=== PATIENT | male | born 1965 | race Caucasian/White ===

== ENCOUNTER 2017-07-19 07:59 | Inpatient (IN) | payer OTHER ==
[~2017-07-19] VITALS: Ht 180.3 cm; Wt 79.4 kg
[2017-07-19] MEDS ORDERED: MAG HYDROX/AL HYDROX/SIMETH 30 ML LIQUID UDC PO PRN (15:15)
[2017-07-19] MEDS ORDERED: IBUPROFEN 400 MG TABLET PO PRN (15:15)
[2017-07-19] MEDS ORDERED: LORAZEPAM 1 MG TABLET PO PRN ×2 (15:15)
[2017-07-19] MEDS ORDERED: CLONIDINE HCL 0.1 MG TABLET PO PRN (15:15)
[2017-07-19] MEDS ORDERED: ACETAMINOPHEN 325 MG TABLET PO PRN (15:15)
[2017-07-19] MEDS ORDERED: ONDANSETRON ODT 4 MG TAB.RAPDIS SL PRN (15:15)
[2017-07-19] MEDS ORDERED: MAGNESIUM HYDROXIDE 30 ML LIQUID UDC PO PRN (15:15)
[2017-07-19] MEDS ORDERED: ONDANSETRON 4 MG/2 ML VIAL IM PRN (15:15)
[2017-07-19] MEDS ORDERED: DICYCLOMINE HCL 20 MG TABLET PO PRN (15:15)
[2017-07-19] MEDS ORDERED: MIRALAX 17 GM POWD.PACK PO PRN (15:15)
[2017-07-19] MEDS ORDERED: LORAZEPAM 2 MG/1 ML VIAL IM PRN (15:15)
[2017-07-19] MEDS ORDERED: LOPERAMIDE HCL 2 MG CAPSULE PO PRN ×2 (15:15)
--- NOTE | 2017-07-19 15:35 | NUR ---
Intake Assessment; Patient is a 51 year old male presented to [facility] to detoxify from Benzodiazepine. Patient is AOX4, appears intoxicated due to ingestion of Xanax prior to admission. Patient's admitting vital signs are as follows; BP 115/69, HR 87, Temperature 98.0, respirations 18, Spo2 95%, denies pain. Patient denies any allergies and denies history of seizures. Educated patient regarding the importance of compliance to treatment and medication regime, verbalized understanding. Will continue with further assessment when patient is up on the unit.
[2017-07-19 16:03] LABS: BASOPHILS % (AUTO) 0.8 % (0.0-2.0); EOSINOPHILS # (AUTO) 0.1 K/uL (0.0-0.7); EOSINOPHILS % (AUTO) 2.9 % (0.0-7.0); HEMATOCRIT 45.6 % (36.7-47.1); HEMOGLOBIN 15.7 g/dL (12.5-16.3); LYMPHOCYTES # (AUTO) 2.1 K/uL (20.0-40.0); LYMPHOCYTES % (AUTO) 42.4 % (20.5-51.5); MEAN CORPUSCULAR HEMOGLOBIN 29.1 uug (23.8-33.4); MEAN CORPUSCULAR HGB CONC 34 g/dL (32.5-36.3); MEAN CORPUSCULAR VOLUME 84.5 fL (73.0-96.2); MONOCYTES # (AUTO) 0.7 K/uL (2.0-10.0); MONOCYTES % (AUTO) 13.6 % (0.0-11.0); NEUTROPHILS % (AUTO) 40.3 % (38.5-71.5); PLATELET COUNT (AUTO) 203 K/uL (152-348); RED BLOOD CELL COUNT(AUTO) 5.39 MIL/uL (4.06-5.63); WHITE BLOOD COUNT (AUTO) 4.9 K/uL (3.6-10.2)
[2017-07-19 16:13] LABS: ETHANOL < 3 MG/DL (0-0)
[2017-07-19 16:14] LABS: *AMPHETAMINE, URINE NEGATIVE (NEGATIVE); *BARBITURATE, URINE NEGATIVE (NEGATIVE); *CANNABINOID, URINE NEGATIVE (NEGATIVE); *COCCAINE, URINE NEGATIVE (NEGATIVE); *OPIATE, URINE NEGATIVE (NEGATIVE); *PHENCYCLIDINE SCREEN,URINE NEGATIVE (NEGATIVE)
[2017-07-19 16:19] LABS: ALANINE AMINOTRANSFERASE 62 U/L (16-63); ALKALINE PHOSPHATASE 171 U/L (50-136); ASPARTATE AMINOTRANSFERASE 36 U/L (15-37); BILIRUBIN,TOTAL 0.4 mg/dL (0.2-1.0); CARBON DIOXIDE 30 mmol/L (21-32); CHLORIDE 106 mmol/L (98-107); CREATININE 1.1 mg/dL (0.6-1.3); GLUCOSE 88 mg/dL (74-106); MAGNESIUM 2.1 mg/dL (1.8-2.4); POTASSIUM 4.2 mmol/L (3.5-5.1); TOTAL PROTEIN, SERUM 7.4 g/dL (6.4-8.2); UREA NITROGEN, BLOOD 18 mg/dL (7-18)
[2017-07-19] MEDS ORDERED: ACYC400T PO (16:51)
[2017-07-19] MEDS ORDERED: HYDR25SU11 RC (16:51)
[2017-07-19] MEDS ORDERED: CYCL5TAB PO (16:51)
[2017-07-19] MEDS ORDERED: ECON15CR2 TP (16:51)
[2017-07-19] MEDS ORDERED: HYDR453.3 TP (16:51)
[2017-07-19] MEDS ORDERED: FLUO40CA49 PO (16:51)
[2017-07-19] MEDS ORDERED: ABAC1TAB15 PO (16:51)
[2017-07-19] MEDS ORDERED: ALPR0.5T8 PO (16:51)
[2017-07-19] MEDS ORDERED: KETO5DRO72 EACHEYE (16:51)
[2017-07-19 17:00] VITALS: BP 110/86
--- NOTE | 2017-07-19 17:27 | NUR ---
Admission note; Patient is a 51 year old male presented to [facility] to detoxify from Benzodiazepine. Patient is AOX4, appears intoxicated due to ingestion of Xanax prior to admission. Patient's admitting vital signs are as follows; BP 115/69, HR 87, Temperature 98.0, respirations 18, Spo2 95%, denies pain. Patient denies any allergies and denies history of seizures. Educated patient regarding the importance of compliance to treatment and medication regime, verbalized understanding. Discussed substance use history. Patient started taking prescribed Xanax when he was 27 years old for Anxiety disorder. Patient was sober for 11 years until his recent relapse on April 2017. At this rate patient is taking 1-2 mg of Xanax/day to manage his anxiety attacks, last taken today prior to admission. 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 Patient started using Meth when he was 17 years and was using it on intermittent basis. Patient was also sober from Meth for 11 years but recently relapsed on April 2017, last used on June 10, 2017. Medical and psychiatric history discussed. Patient reported being diagnosed with HIV in 2000 and currently taking HIV medications. Patient was also diagnosed with Herpes Simplex type 1 in 2000. Patient was recently diagnosed with multiple psychiatric disorders including, Bipolar disorder, borderline disorder, Generalized anxiety disorder, ADHD, PTSD, OCD. Home medications reconciled. Patient reported that his recent relapse is due to job loss which led to stress and multiple anxiety and anger attacks. Patient reported that he wants to stop using mentioned substances so he can continue with sobriety. Patient is willing to continue treatment after discharge at [facility] for a 60 day program. Patient was seen and evaluated by MD. Admitted patient to room 310. Skin check done, small intact dry abrasion noted on patient's right thumb due to skin picking. Oriented patient to unit. Patient primary care physician is Dr. Matthew Long. All safety measures secured. Will continue to monitor patient.
--- NOTE | 2017-07-19 18:44 | NUR ---
End of shift note; Patient is AOX4, patient is a newly admitted client here to detoxify from Benzodiazepine,. Patient is currently on PRN medications only, to be evaluated by MD tomorrow for possible taper order. All safety measures secured. Met all needs.
--- NOTE | 2017-07-19 19:10 | NUR ---
Start of Shift Patient Received. Patient is in his room, awake, alert and verbally responsive. He is noted sitting in bed watching TV and noted with worried affect. Patient is currently placed on PRN medications for increased signs and symptoms of withdrawal. No PRN medications administered. Last noted CIWA 3. All needs attended to promptly. Will continue plan of care as ordered.
[2017-07-19 20:30] VITALS: BP 109/66
[2017-07-19] MEDS ORDERED: LORAZEPAM 1 MG TABLET PO SCH (21:00)
[2017-07-19] MEDS: GABAPENTIN 300 MG CAPSULE PO SCH (21:38)
[2017-07-20 00:17] VITALS: BP 101/66
[2017-07-20 04:29] VITALS: BP 106/71
--- NOTE | 2017-07-20 07:05 | NUR ---
End of Shift Patient is noted in bed sleeping. Breathing even and non labored. Patient is currently placed on PRN medications for increased signs and symptoms of withdrawal. No PRN medications administered. Last noted CIWA 10. He slept a total of 9 hours. All needs attended to promptly. Will endorse to continue plan of care as ordered.
[2017-07-20 08:00] VITALS: BP 105/77
--- NOTE | 2017-07-20 08:00 | NUR ---
Received endorsement from manager shift nurse. Client is resting in room. Client is A/O to person, place, time, and situation. Client denies any S/I or H/I. Client was placed on PRN medications for continued s/s of withdrawal. No PRN medications were given during previous shift. Client slept for 9 hrs. during the night. Last CIWA 10 @0400. Side rails padded and raised. Call light within reach.
[2017-07-20] MEDS ORDERED: TUBERCULIN,PURIF.PROT.DERIV. 5 TU/0.1 ML TEST ID ONE (09:00)
[2017-07-20] MEDS: TRIUMEQ PO SCH (09:09)
[2017-07-20] MEDS: GABAPENTIN 300 MG CAPSULE PO SCH ×2 (09:09→20:35)
--- NOTE | 2017-07-20 09:16 | NUR ---
PPD Test administered to left forearm.
[2017-07-20] MEDS: FLUOXETINE HCL 20 MG CAPSULE PO SCH (12:12)
[2017-07-20] MEDS: LORAZEPAM 1 MG TABLET PO SCH ×3 (12:12→20:35)
[2017-07-20 12:22] VITALS: BP 103/70
[2017-07-20 16:00] VITALS: BP 108/74
--- NOTE | 2017-07-20 18:42 | NUR ---
START OF SHIFT NOTE: Patient is a 51 year old male, continues modified 4 Day Ativan for Benzodiazepines/Xanax and Methamphetamine withdrawal. Patient is alert and oriented x4. The most recent CIWA=9 @1605. Patient presented anxious, agitated, c/o nervousness, pins and needles sensations, mild headache, tremors, stomach cramps, sweating, and restlessness. No PRN Medications administrated during day, per day shift nurse report. All needs met. Safety measures in place by hospital policy: Call light within reach, bed in the lowest position locked, padded rails up x2. Endorsement received from day shift nurse. Will continue to monitor closely.
--- NOTE | 2017-07-20 18:42 | NUR ---
END OF SHIFT Endorsed client to incoming nurse. Client remains in his room. Client is a/o to person, place, time, and situation. Client continues to have an anxious mood , is depressed, and has a flat affect. Client denies any s/s of pain. Client is on a modified 4 day Ativan taper for withdrawals from benzodiazepines. Clients v/s were monitored throughout the day. Client did not attend group therapy. Client did consume 100% of all meals. No PRN medications were given. Last CIWA 9 @1600. Client has call light within reach and will continue to be monitored.
[2017-07-20 20:00] VITALS: BP 103/75
[2017-07-20] MEDS: diphenhydrAMINE 50 MG CAPSULE PO PRN (20:35)
--- NOTE | 2017-07-20 20:35 | NUR ---
PRN BENADRYL 50 MG 1 CAPSULE PO ADMINISTRATION. Patient c/o insomnia and asked aid. PRN Benadryl 50 mg 1 capsule PO administrated as ordered with full glass of water. Patient tolerated well. All needs met. Safety measures in the place: Call light within reach, bed in the lowest position locked, padded rails up x2. Will to continue to monitor closely.
--- NOTE | 2017-07-20 21:35 | NUR ---
RE-ASSESSMENT Patient is sleeping. RR:16. Respirations are unlabored and even. PRN Benadryl 50 mg PO administrated for insomnia @2025 was effective. All needs met. Safety measures in the place: Call light within reach, bed in the lowest position locked, padded rails up x2. Will to continue to monitor closely.
[2017-07-21] VITALS: BP 100/73
[2017-07-21 04:00] VITALS: BP 95/65
[2017-07-21 05:11] LABS: *BASOS 0 % (Not Estab.); *EOS 3 % (Not Estab.); *EOS ABSOLUTE 0.2 x10E3/uL (0.0-0.4); *HCT 44.1 % (37.5-51.0); *HGB 15.3 g/dL (13.0-17.7); *IMMATURE GRANULOCYTES 0 % (Not Estab.); *LYMPHOCYTES 39 % (Not Estab.); *LYMPHOCYTES ABSOLUTE 1.9 x10E3/uL (0.7-3.1); *MCH 28.9 pg (26.6-33.0); *MCHC 34.7 g/dL (31.5-35.7); *MCV 83 fL (79-97); *MONOCYTES 15 % (Not Estab.); *MONOCYTES ABSOLUTE 0.7 x10E3/uL (0.1-0.9); *NEUTROPHILS 43 % (Not Estab.); *NEUTROPHILS ABSOLUTE 2.1 x10E3/uL (1.4-7.0); *PLT 194 x10E3/uL (150-379); *RDW 13.6 % (12.3-15.4); *WBC 4.9 x10E3/uL (3.4-10.8)
--- NOTE | 2017-07-21 06:55 | NUR ---
END OF SHIFT NOTE: 51 year old male admitted for Benzodiazepines (Xanax) and Methamphetamine withdrawal, continues modified 4 day Ativan taper. Patient is alert and oriented x4. He is ambulatory with steady gate. The patient appears sad with flat affect, and with poor eye contact. The patient encouraged to express her feelings. Education provided to use of Relaxation Techniques: Deep breathing exercises, guided imagery, and visualization. Patient noted to be unshaven, unkempt, and uncombed. Educated in safety and hygiene care. Encouraged to independently perform hygiene care. Initial CIWA= 10 @ 2000, CIWA=8 @0000. The most recent CIWA=8 @0400. The patient presented with anxiety, agitation, nervousness, tremors, sweating, restless legs, and fatigue. Skin is intact, warm and dry to touch. Encouraged to increase oral fluids as tolerated. PRN Benadryl 50 mg PO administrated for insomnia @2034 was effective. Patient remains compliant with treatment, medications, and diet regime. Calm and safety environment with minimized noises was provided. Patient slept 8 hours, intake1,000 ml, voided x1. Encouraged to fluid intake as tolerated. Encouraged to attend group activities. All needs met. Safety measures in the place: Call light within reach, bed locked in the lowest position, padded rails up x2. Patient endorsed to day shift nurse.
--- NOTE | 2017-07-21 07:30 | NUR ---
START OF SHIFT Rcvd endorse from ongoing nurse, client is in room, a/o X 4, Client presents with anxious mood, agitated, flat affect, moist skin, tremors, and difficulty concentrating. Client reports nausea, abdominal cramps, cold/chills, restless legs, decreased appetite, inability to sleep, and fatigue. Encourage client to increase PO fluid to facilitate detox. Encourage client to attend group therapy to learn skills to maintain sober. Client is on 4 day Ativan taper (day 2). Last CIWA 8 @ 1999. PRN Benadryl 50mg PO administered for inability to sleep, client slept 8 hrs. Seizure precautions. Call light within reach.
[2017-07-21 08:00] VITALS: BP 115/75
[2017-07-21] MEDS: TRIUMEQ PO SCH (08:13)
[2017-07-21] MEDS: LORAZEPAM 1 MG TABLET PO SCH ×2 (08:13→14:05)
[2017-07-21] MEDS: FLUOXETINE HCL 20 MG CAPSULE PO SCH (08:13)
[2017-07-21] MEDS: GABAPENTIN 300 MG CAPSULE PO SCH ×2 (08:13→20:17)
[2017-07-21 11:07] LABS: *HELPER T-LYMPH MARKR(CD4)ABSO 809 /uL (359-1519); *HELPER T-LYNPH MARKER CD4)% 42.6 % (30.8-58.5); HEPATITIS B SURFACE AG Negative (Negative)
[2017-07-21 12:35] VITALS: BP 116/75
[2017-07-21 16:00] VITALS: BP 105/71
--- NOTE | 2017-07-21 19:37 | NUR ---
END OF SHIFT Endorse client to incoming nurse, client is in room, he is a/o x 4. client continues to present depressed, anxious mood, flat affect, fine tremors, clammy skin, decreased appetite, restless legs, and fatigue. Client is compliant with group therapy. Adequate PO fluid intake 2750mL, void x 5, stool x1. Consumes 50% of meals. Last CIWA 13 @ 1600. Call light within reach.
--- NOTE | 2017-07-21 19:40 | NUR ---
START OF SHIFT Patient is a 51-year-old male admitted on 07/19/17 for benzodiazepine withdrawal. Patient is currently on a modified 4-day Ativan taper, today being day 2, tolerating well. Patients last CIWA was 13 per day shift nurse. Patient received no PRN medications per day shift. Upon assessment, patient is quiet and does not make eye contact. Patient is alert and oriented x4. Patient reports anxiety and is cooperative but withdrawn. Patient is on fall and seizure precautions, with no history of seizure. Safety measures in place, side rails up x2, bed locked in low position, call light within reach. Will continue to monitor.
[2017-07-21 20:00] VITALS: BP 93/60
[2017-07-21] MEDS ORDERED: LORAZEPAM 1 MG TABLET PO SCH (21:00)
[2017-07-22] VITALS: BP 96/68
--- NOTE | 2017-07-22 | NUR ---
CIWA DEFERRED CIWA deferred due to patient sleeping; to be assessed and scored while patient is awake. Patient's respirations are even and unlabored, 16/min. Safety measures in place, bed locked in low position, side rails up x2, call light within reach. Will continue to monitor.
[2017-07-22 04:00] VITALS: BP 104/72
--- NOTE | 2017-07-22 04:00 | NUR ---
CIWA DEFERRED CIWA deferred at this time due to patient sleeping; to be assessed and scored while patient is awake. Patient's respirations are even and unlabored, 16/min. Safety measures in place, bed locked in low position, side rails up x2, call light within reach. Will continue to monitor.
--- NOTE | 2017-07-22 07:15 | NUR ---
END OF SHIFT Patient is a 51-year-old male admitted on 07/19/17 for benzodiazepine withdrawal. Patient is currently on a modified 4-day Ativan taper, today will be day 3, tolerating well. Patients last CIWA was 11. Patient received no PRN medications during shift foreman. Patient slept for 9 hours, total intake 1,422mL, void x3, stool x1. Patient is on fall and seizure precautions, with no history of seizure. Safety measures in place, side rails up x2, bed locked in low position, call light within reach. Will endorse to day shift.
--- NOTE | 2017-07-22 07:36 | NUR ---
START OF SHIFT Pt is a 51 yr old male, AA&Ox4. Pt was admitted on 07/19/17 for Benzo w/d and is on 4 day Ativan taper as ordered. Received report from branch specialist nurse. No PRN's were given during the night. Last CIWA score was 11. Pt slept for 9 hrs. Pt is currently in bed resting with respirations even and unlabored. Skin is intact, warm and moist to touch. Pt is on fall and seizure precautions. Call light is within reach. will continue to monitor.
[2017-07-22 08:00] VITALS: BP 119/77
[2017-07-22] MEDS: FLUOXETINE HCL 20 MG CAPSULE PO SCH (08:52)
[2017-07-22] MEDS: LORAZEPAM 1 MG TABLET PO SCH ×2 (08:52→21:14)
[2017-07-22] MEDS: GABAPENTIN 300 MG CAPSULE PO SCH ×3 (08:52→21:14)
[2017-07-22] MEDS: TRIUMEQ PO SCH (08:52)
--- NOTE | 2017-07-22 08:54 | NUR ---
PRN GIVEN Pt c/o headache 09/10. Facial grimacing is observed. Pt is also noted fidgety and tense. Motrin 400mg PO PRN was given as ordered. Encouraged increase fluid intake for hydration. Will continue to monitor.
--- NOTE | 2017-07-22 09:54 | NUR ---
PRN RE-ASSESSMENT Motrin PRN was effective. Pt denies any headache at this time. Encouraged increase fluid intake. Will continue to monitor.
[2017-07-22 12:00] VITALS: BP 102/74
[2017-07-22] MEDS ORDERED: IBUP-1953 PO (13:10)
[2017-07-22] MEDS ORDERED: DIPH50CA37 PO (13:10)
[2017-07-22] MEDS ORDERED: GABA-534 PO (13:10)
[2017-07-22] MEDS ORDERED: CLON0.1T14 PO (13:10)
[2017-07-22 16:00] VITALS: BP 100/73
--- NOTE | 2017-07-22 19:02 | NUR ---
END OF SHIFT Pt is a 51 yr old male, AA&Ox4. Pt was admitted on 07/19/17 for Benzo w/d and is on 4 day Ativan taper as ordered. Pt has been cooperative with medication regimen and plan of care. Pt attended group therapy. Pt c/o anxiety and headache in the morning before 0900 medications. Motrin 400mg PO PRN was given for headache. Medication was effective. Pt was noted with facial redness and fine tremors on BUE. Pt is also noted with flat affective. Skin is intact, warm and moist to touch. Pt was encouraged increase fluid intake for hydration. Last CIWA score was 8 at 1600. Pt was able to consume 75-100% of meals. Pt is on fall and seizure precautions. Call light is within reach.
--- NOTE | 2017-07-22 19:30 | NUR ---
START OF SHIFT NOTE : Pt is a 51 yr old male, AA&Ox4. Pt was admitted on 07/19/17 for Benzo w/d and is on 4 day Ativan taper as ordered . Last CIWA score was 8 at 1600. PRN Motrin 400mg PO was given during a day shift. Medication was effective. Upon assessment, patient is resting in the bed. Patient is alert and oriented x3, withdrawn when alert, complained of increased level of anxiety, difficulty falling and staying asleep, tremor bilaterally . Encouraged healthy diet while in detox. Encouraged patient to participate in group therapies and verbalize feelings.Encouraged to independently perform hygiene care.Instructed patient to maintain adequate fluid and nutritional intake. Safety measures in place, side rails up x2, bed locked in low position, call light within reach. Will continue to monitor and observe closely.
[2017-07-22 20:00] VITALS: BP 112/80
--- NOTE | 2017-07-22 21:00 | NUR ---
PRN BENADRYL Pt. complains of difficulty falling asleep, insomnia. PRN BENADRYL given as ordered. Safety measures in place : bed on lowest position with side rails x2 up for safety, call light within reach. Will continue to monitor closely and offer help.
[2017-07-22] MEDS: diphenhydrAMINE 50 MG CAPSULE PO PRN (21:14)
--- NOTE | 2017-07-22 21:58 | NUR ---
RE-ASSESSMENT DARIN Pt. is sleeping, RR=16, unlabored and even . Safety measures in place : bed on lowest position with side rails x2 up for safety, call light within reach. Will continue to monitor closely and offer help.
--- NOTE | 2017-07-23 06:39 | NUR ---
END OF SHIFT NOTE : Pt is a 51 yr old male, AA&Ox4. Pt was admitted on 07/19/17 for Benzo w/d and is on 4 day Ativan taper as ordered . PRN BENADRYL given during a power and recovery shift engineer. Pt. spent time in his room only till late of the evening, was friendly and cooperative. Encouraged patient to participate in group therapies and verbalize feelings. CIWA taken when pt. was awake, last CIWA=8 at 04:00 . Intake= 1,653ml, voided x3, slept=8 hours. Safety measures in place : bed on lowest position with side rails x2 up for safety, all light within reach. Will continue to monitor closely and offer help.
--- NOTE | 2017-07-23 07:30 | NUR ---
START OF SHIFT Pt is a 51 yr old male, AA&Ox4. Pt was admitted on 07/19/17 for Benzo w/d and is on 4 day Ativan taper as ordered. Received report from retail shift leader nurse. Pt received Benadryl PRN for sleep. Medication was effective. Pt slept for 8 hrs. Last CIWA score was 8 during the night. Pt states of sleeping well through the night. Pt c/o anxiety but is able to cope with anxiety level. Skin is intact, warm and moist to touch. Pt was encourage to attend group during the day. Pt is on fall and seizure precautions. Call light is within reach. Will continue to monitor.
[2017-07-23 08:09] VITALS: BP 108/70
[2017-07-23] MEDS: FLUOXETINE HCL 20 MG CAPSULE PO SCH (08:46)
[2017-07-23] MEDS: GABAPENTIN 300 MG CAPSULE PO SCH ×3 (08:46→21:16)
[2017-07-23] MEDS: TRIUMEQ PO SCH (08:46)
[2017-07-23] MEDS ORDERED: LORAZEPAM 1 MG TABLET PO SCH (09:00)
[2017-07-23 12:00] VITALS: BP 108/75
[2017-07-23 16:00] VITALS: BP 108/72
--- NOTE | 2017-07-23 18:50 | NUR ---
END OF SHIFT Pt is a 51 yr old male, AA&Ox4. Pt was admitted on 07/19/17 for Benzo w/d and has completed a 4 day Ativan taper as ordered. Pt has been cooperative with medication regimen and attended group therapy. Pt has been noted to remain in his room throughout the day. Pt c/o anxiety but is able to cope with anxiety level. Skin is intact, warm and moist to touch. Pt is noted with flat affect. Pt was encouraged increase fluid intake for hydration. Last CIWA score was 8 at 1600. Pt was able to consume 75-100% of meals. Pt is to be discharged tomorrow on 07/24/17. Pt is on fall and seizure precautions. Call light is within reach.
--- NOTE | 2017-07-23 19:30 | NUR ---
START OF SHIFT NOTE : Pt is a 51 yr old male, AA&Ox4. Pt was admitted on 07/19/17 for Benzo w/d and is on 4 day Ativan taper as ordered . Last CIWA score was 8 at 1600. No PRN was giving during a day shift.. Upon assessment, patient is resting in the bed. Patient is alert and oriented x3, withdrawn when alert, complained of insomnia, increased level of anxiety, anhedonia. Educated patient regarding the importance of compliance to treatment and medication regime, patient verbalized understanding. Encouraged patient to participate in group therapies and verbalize feelings. Safety measures in place, side rails up x2, bed locked in low position, call light within reach. Will continue to monitor and observe closely.
[2017-07-23 20:00] VITALS: BP 117/78
[2017-07-23] MEDS: diphenhydrAMINE 50 MG CAPSULE PO PRN (21:16)
--- NOTE | 2017-07-23 22:00 | NUR ---
RE-ASSESSMENT DRAIN Pt. is sleeping, RR=16, unlabored and even . Safety measures in place : bed on lowest position with side rails x2 up for safety, call light within reach. Will continue to monitor closely and offer help.
--- NOTE | 2017-07-24 06:33 | NUR ---
END OF SHIFT NOTE : Pt is a 51 yr old male, AA&Ox4. Pt was admitted on 07/19/17 for Benzo w/d and is on 4 day Ativan taper as ordered . PRN BENADRYL given during a cargo operations agent. Pt. spent time in his room only till late of the evening. CIWA taken when pt. was awake, last CIWA=8 at 04:00 . Intake= 1,500ml, voided x3, slept=8 hours. Pt. will be D/C today in A.M. Safety measures in place : bed on lowest position with side rails x2 up for safety, all light within reach. Will continue to monitor closely and offer help.
--- NOTE | 2017-07-24 07:30 | NUR ---
START OF SHIFT Pt is a 51 yr old male, AA&Ox4. Pt was admitted on 07/19/17 for Benzo w/d and completed a 4 day Ativan taper as ordered. Received report from overnight cashier nurse. Pt received Benadryl PRN for sleep. Medication was effective. Pt slept for 8 hrs. Last CIWA score was 5 during the night. Pt states of sleeping well through the night. Pt c/o anxiety due to discharged but is able to cope with anxiety level. Skin is intact, warm and moist to touch. Pt will be discharged today to [facility]. Pt states of being ready to continue with his treatment. Pt is on fall and seizure precautions. Call light is within reach. Will continue to monitor.
[2017-07-24 08:00] VITALS: BP 115/81
[2017-07-24] MEDS: GABAPENTIN 300 MG CAPSULE PO SCH (08:26)
[2017-07-24] MEDS: FLUOXETINE HCL 20 MG CAPSULE PO SCH (08:26)
[2017-07-24] MEDS: TRIUMEQ PO SCH (08:26)
--- NOTE | 2017-07-24 09:30 | NUR ---
DISCHARGE NOTE Pt is a 51 yr old male, AA&Ox4. pt was admitted on 07/19/17 for Benzo Withdrawal and has completed a 4 day Ativan taper as ordered. Medication was avelina well. Pt has been cooperative with medication regimen and plan of care. Pt was observed attending group therapy during his stay. No SI/HI noted. Pt was educated on discharge summary and prescriptions. Pt was able to verbalize understanding. Pt was discharged off the unit at 0920 in stable condition. Pt left with all belongings, valuables and home medications.
== END 2017-07-24 09:25 | disposition other institution (70) | DRG 895 ==
LOC: SRC 14:46
PROVIDERS: ADMIT Internal Medicine; ATTEND Internal Medicine
PROC: HZ2ZZZZ Detoxification Services for Substance Abuse Treatment (ICD-10-PCS; principal; 2017-07-19)
PROC: HZ41ZZZ Group Counseling for Substance Abuse Treatment, Behavioral (ICD-10-PCS; 2017-07-20)
DX: F13.230 Sedative, hypnotic or anxiolytic dependence with withdrawal, uncomplicated (principal); F31.9 Bipolar disorder, unspecified; B00.1 Herpesviral vesicular dermatitis; F10.21 Alcohol dependence, in remission; F60.3 Borderline personality disorder; F43.10 Post-traumatic stress disorder, unspecified; F41.1 Generalized anxiety disorder; F15.10 Other stimulant abuse, uncomplicated; F90.9 Attention-deficit hyperactivity disorder, unspecified type; G31.84 Mild cognitive impairment of uncertain or unknown etiology; Z81.1 Family history of alcohol abuse and dependence; R74.0 Nonspecific elevation of levels of transaminase and lactic acid dehydrogenase [LDH]
CPT/HCPCS: 36415; 70030-TC; 80307; 83735; 85025; 86361; 86580; 86592; 86705; 86803; 87340; 87806; G0480; Q0163